=== PATIENT | male | born 1990 | race Caucasian/White ===

== ENCOUNTER 2020-10-07 19:04 | Emergency (ER) | payer SELFPAY ==
[2020-10-07] MEDS ORDERED: Ibuprofen 200 MG TAB ONE (20:44)
== END 2020-10-07 21:33 | disposition left against medical advice (07) ==
LOC: NAV ERS 19:04
DX: S61.210A Laceration without foreign body of right index finger without damage to nail, initial encounter (principal); J45.909 Unspecified asthma, uncomplicated; F17.210 Nicotine dependence, cigarettes, uncomplicated; Z79.899 Other long term (current) drug therapy; W26.0XXA Contact with knife, initial encounter
CPT/HCPCS: 87070; 87077; 87205; 99283